=== PATIENT | female | born 1985 | race American Indian/Alaskan Native ===

== ENCOUNTER 2019-09-08 04:24 | Inpatient (IN) | payer SELFPAY ==
[2019-09-08] MEDS ORDERED: ONDANSETRON 4 MG/2 ML INJ ONE ×2 (04:48→21:33)
[2019-09-08] MEDS ORDERED: SODIUM CHLORIDE 0.9% 1000 ML 1,000 ML IV ONE ×2 (04:52→06:25)
[2019-09-08 05:43] LABS: BUN/Creatinine Ratio 10; Blood Urea Nitrogen 9 mg/dL (7-17); Calcium 9.1 mg/dL (8.4-10.2); Hemolysis Index 0
[2019-09-08] MEDS ORDERED: KETOROLAC 30 MG/1 ML INJ IV ONE (05:48)
[2019-09-08 06:21] LABS: Basophils # (Auto) 0.1 K/mm3 (0.0-0.1); Monocytes # (Auto) 0.7 K/mm3 (0.0-0.8)
--- NOTE | 2019-09-08 06:24 | Emergency Department Report ---
ED General Adult HPI - General Chief complaint: Dyspnea/Respdistress Stated complaint: SHORT OF BREATH, VISION LOSS Time Seen by Provider: 09/08/19 06:21 Source: patient Mode of arrival: Ambulatory Limitations: No Limitations - History of Present Illness Initial comments: 34-year-old female with no known prior medical history not taking any current medications. She complained of shortness of breath, vomiting, weakness, chills which began yesterday. He stated that she had pain in her left lower flank for the last few days. She arrives a few hours prior to my arrival and had screening exams ordered by my predecessor. On my encounter. She is noted to be tachypnea And tachycardic but her blood pressure is amply maintained. She was found to have right lower quadrant abdominal tenderness on my exam. Additional medical screening was ordered. He was given fluids and empiric antibiotics. -: Gradual Location: left Radiation: other (flank) Quality: aching Consistency: intermittent Improves with: none Worsens with: none Associated Symptoms: denies other symptoms (except as above) - Related Data Allergies Allergy/AdvReac Type Severity Reaction Status Date / Time No Known Allergies Allergy Verified 09/08/19 04:27 ED Review of Systems ROS: Stated complaint: SHORT OF BREATH, VISION LOSS Other details as noted in HPI Constitutional: chills. denies: fever Eyes: denies: eye pain, eye discharge, vision change ENT: denies: ear pain, throat pain Respiratory: shortness of breath. denies: cough, wheezing Cardiovascular: denies: chest pain, palpitations Endocrine: no symptoms reported Gastrointestinal: denies: abdominal pain, nausea, diarrhea Genitourinary: denies: urgency, dysuria, discharge Musculoskeletal: denies: back pain, joint swelling, arthralgia Skin: denies: rash, lesions Neurological: denies: headache, weakness, paresthesias Psychiatric: denies: anxiety, depression Hematological/Lymphatic: denies: easy bleeding, easy bruising ED Past Medical Hx - Past Medical History Previous Medical History?: No - Surgical History Past Surgical History?: No - Social History Smoking Status: Never Smoker Substance Use Type: None ED Physical Exam - General Limitations: No Limitations General appearance: alert, other (tachypnea and somewhat pale) - Head Head exam: Present: atraumatic, normocephalic - Eye Eye exam: Present: normal appearance, PERRL, EOMI. Absent: scleral icterus - ENT ENT exam: Present: mucous membranes moist - Neck Neck exam: Present: normal inspection. Absent: tenderness, meningismus - Respiratory Respiratory exam: Present: normal lung sounds bilaterally, other (increased work of breathing). Absent: respiratory distress - Cardiovascular Cardiovascular Exam: Present: regular rate, normal rhythm. Absent: systolic murmur, diastolic murmur, rubs, gallop - GI/Abdominal GI/Abdominal exam: Present: soft, tenderness (right lower quadrant tenderness without rebound), normal bowel sounds. Absent: distended, rebound, rigid - Extremities Exam Extremities exam: Present: normal inspection. Absent: calf tenderness - Back Exam Back exam: Present: normal inspection. Absent: CVA tenderness (R), CVA tenderness (L), muscle spasm, paraspinal tenderness, vertebral tenderness - Neurological Exam Neurological exam: Present: alert, oriented X3, CN II-XII intact. Absent: motor sensory deficit - Psychiatric Psychiatric exam: Present: normal affect, normal mood - Skin Skin exam: Present: warm, dry, intact, normal color. Absent: rash ED Course Vital Signs 09/08/19 09/08/19 09/08/19 04:29 04:55 07:39 Temperature 97.9 F 98.2 F 97.9 F Pulse Rate 140 H 132 H 122 H Respiratory 18 33 H 22 Rate Blood Pressure 121/51 Blood Pressure 110/37 105/62 [Left] O2 Sat by Pulse 100 97 96 Oximetry 09/08/19 09/08/19 09/08/19 07:58 08:35 08:58 Temperature 97.8 F Pulse Rate 130 H Respiratory 22 31 H Rate Blood Pressure Blood Pressure [Left] O2 Sat by Pulse 98 100 Oximetry 09/08/19 09/08/19 09/08/19 09:00 09:01 10:00 Temperature Pulse Rate 135 H 127 H 137 H Respiratory 22 28 H 27 H Rate Blood Pressure 106/54 121/65 Blood Pressure 105/64 [Left] O2 Sat by Pulse 98 100 100 Oximetry 09/08/19 09/08/19 09/08/19 10:30 11:00 11:30 Temperature Pulse Rate 135 H 133 H 137 H Respiratory 31 H 22 26 H Rate Blood Pressure 111/53 123/71 117/55 Blood Pressure [Left] O2 Sat by Pulse 100 100 100 Oximetry 09/08/19 09/08/19 09/08/19 11:34 11:35 11:47 Temperature 97.9 F 97.4 F L 97.3 F L Pulse Rate 140 H 137 H 137 H Respiratory 32 H 28 H 32 H Rate Blood Pressure 117/55 117/55 104/68 Blood Pressure [Left] O2 Sat by Pulse 100 100 100 Oximetry 09/08/19 09/08/19 09/08/19 11:49 12:01 12:19 Temperature 97.4 F L 98 F Pulse Rate 136 H 137 H 133 H Respiratory 26 H 39 H 22 Rate Blood Pressure 119/65 126/68 122/59 Blood Pressure [Left] O2 Sat by Pulse 100 100 98 Oximetry 09/08/19 09/08/19 12:31 13:24 Temperature 97.4 F L Pulse Rate 135 H 138 H Respiratory 29 H 28 H Rate Blood Pressure 156/82 139/74 Blood Pressure [Left] O2 Sat by Pulse 100 98 Oximetry - Reevaluation(s) Reevaluation #1: CT the abdomen and pelvis showed evidence of 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 In addition there was pelvic vein thrombosis extending up into the IVC. I discussed this with the radiologist. He recommended that we proceed with CT pulmonary angiography despite the extra contrast load. I agree. CT angios was ordered. The patient was heparinized. Transfusion was ordered. Fluid bolus was given. She had been previously given empiric antibiotic. She was found to have substantial lactic acidosis. I held off on giving her any opioids for pain as they are generally free load reducing. Her blood pressure is low. She has high pretest probability for significant pulmonary embolism. We will defer that until she is more stable. Patient is admitted to the ICU hospitalist service for further care and management. 09/08/19 09:49 ED Medical Decision Making - Lab Data Result diagrams: 09/08/19 08:00 09/08/19 Unknown Laboratory Results - last 24 hr 09/08/19 09/08/19 09/08/19 05:21 05:58 06:41 WBC 16.5 H RBC 5.76 H Hgb 7.3 L Hct 30.0 L MCV 52 L MCH 13 L MCHC 24 L RDW 24.7 H Plt Count 143 Lymph % (Auto) 8.1 L [place] % (Auto) 4.0 Eos % (Auto) 0.0 Baso % (Auto) 0.0 Lymph # 1.3 [place] # 0.7 Eos # 0.0 Baso # 0.1 Seg Neutrophils % 87.4 H Seg Neutrophils # 14.4 H PT 16.1 H INR 1.27 H APTT 25.1 D-Dimer 8215.21 H Sodium Potassium Chloride Carbon Dioxide Anion Gap BUN Creatinine Estimated GFR BUN/Creatinine Ratio Glucose Lactic Acid Calcium Magnesium Total Bilirubin Direct Bilirubin Indirect Bilirubin AST ALT Alkaline Phosphatase Troponin T NT-Pro-B Natriuret Pep Total Protein Albumin Albumin/Globulin Ratio Triglycerides Cholesterol LDL Cholesterol Direct HDL Cholesterol Cholesterol/HDL Ratio Lipase HCG, Qual Salicylates 09/08/19 09/08/19 09/08/19 06:41 06:41 06:41 WBC RBC Hgb Hct MCV MCH MCHC RDW Plt Count Lymph % (Auto) [place] % (Auto) Eos % (Auto) Baso % (Auto) Lymph # [place] # Eos # Baso # Seg Neutrophils % Seg Neutrophils # PT INR APTT D-Dimer Sodium Potassium Chloride Carbon Dioxide Anion Gap BUN Creatinine Estimated GFR BUN/Creatinine Ratio Glucose Lactic Acid 6.30 H* Calcium Magnesium 1.80 Total Bilirubin 1.40 H Direct Bilirubin 0.5 H Indirect Bilirubin 0.9 AST 43 H ALT 26 Alkaline Phosphatase 115 Troponin T NT-Pro-B Natriuret Pep 1552 H Total Protein 7.8 Albumin 3.3 L Albumin/Globulin Ratio 0.7 Triglycerides Cholesterol LDL Cholesterol Direct HDL Cholesterol Cholesterol/HDL Ratio Lipase 22 HCG, Qual Salicylates < 0.3 L 09/08/19 09/08/19 09/08/19 06:41 08:00 08:00 WBC RBC Hgb 7.4 L Hct 28.4 L MCV MCH MCHC RDW Plt Count 137 L Lymph % (Auto) [place] % (Auto) Eos % (Auto) Baso % (Auto) Lymph # [place] # Eos # Baso # Seg Neutrophils % Seg Neutrophils # PT 16.0 H INR 1.26 H APTT 25.3 D-Dimer Sodium Potassium Chloride Carbon Dioxide Anion Gap BUN Creatinine Estimated GFR BUN/Creatinine Ratio Glucose Lactic Acid Calcium Magnesium Total Bilirubin Direct Bilirubin Indirect Bilirubin AST ALT Alkaline Phosphatase Troponin T NT-Pro-B Natriuret Pep Total Protein Albumin Albumin/Globulin Ratio Triglycerides Cholesterol LDL Cholesterol Direct HDL Cholesterol Cholesterol/HDL Ratio Lipase HCG, Qual Negative Salicylates 09/08/19 09/08/1920 08:14 Unknown Unknown WBC RBC Hgb Hct MCV MCH MCHC RDW Plt Count Lymph % (Auto) [place] % (Auto) Eos % (Auto) Baso % (Auto) Lymph # [place] # Eos # Baso # Seg Neutrophils % Seg Neutrophils # PT INR APTT D-Dimer Sodium 137 Potassium 3.9 Chloride 102.6 Carbon Dioxide 17 L Anion Gap 21 BUN 9 Creatinine 0.9 Estimated GFR > 60 BUN/Creatinine Ratio 10 Glucose 217 H Lactic Acid 7.70 H* Calcium 9.1 Magnesium Total Bilirubin Direct Bilirubin Indirect Bilirubin AST ALT Alkaline Phosphatase Troponin T 0.047 H NT-Pro-B Natriuret Pep Total Protein Albumin Albumin/Globulin Ratio Triglycerides 42 Cholesterol 100 LDL Cholesterol Direct 53 HDL Cholesterol 47 Cholesterol/HDL Ratio 2.12 Lipase HCG, Qual Negative Salicylates - EKG Data EKG shows normal: sinus rhythm Rate: tachycardia - EKG Data Interpretation: other (there is a significant S1 in lead 1, there is a Q in lead 3. I don't see an inverted T-wave there. As a QR pattern in V1. This looks like a right for a tracheal strain pattern to me. There is no evidence for acute ischemia.) Laboratory Results - last 24 hr 09/08/19 09/08/19 09/08/19 05:58 Unknown Unknown [place] % (Auto) 4.0 Eos % (Auto) 0.0 [place] # 0.7 Eos # 0.0 Baso # 0.1 Seg Neutrophils % 87.4 H Seg Neutrophils # 14.4 H Sodium 137 Potassium 3.9 Chloride 102.6 Carbon Dioxide 17 L Anion Gap 21 BUN 9 Creatinine 0.9 Estimated GFR > 60 BUN/Creatinine Ratio 10 Glucose 217 H Calcium 9.1 Troponin T 0.047 H HCG, Qual Negative 09/08/19 06:23 - Radiology Data Radiology results: report reviewed Critical Care Time: Yes Critical care time in (mins) excluding proc time.: 120 Critical care attestation.: If time is entered above; I have spent that time in minutes in the direct care of this critically ill patient, excluding procedure time. 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
--- NOTE | 2019-09-08 06:24 | XRay Report ---
CHEST 1 VIEW INDICATION: Chest Pain. COMPARISON: None FINDINGS: Support devices: None. Heart: Within normal limits. Lungs/Pleura: No acute air space or interstitial disease. Additional findings: None. IMPRESSION: 1. No acute findings. Signer Name: Lucien Hoffman MD Signed: 09/08/2019 6:19 AM Workstation Name: [id number]
[2019-09-08 06:27] LABS: Chol/HDL Ratio 2.12 %; HDL Cholesterol 47 mg/dL (40-59); LDL Cholesterol,Direct 53 mg/dL (50-130)
[2019-09-08 06:30] LABS: Hemoglobin 7.3 gm/dl (10.1-14.3); Mean Corpuscular Volume 52 fl (79-97); Red Blood Count 5.76 M/mm3 (3.65-5.03)
[2019-09-08 06:31] LABS: Lymphocytes # (Auto) 1.3 K/mm3 (1.2-5.4); Lymphocytes % (Auto) 8.1 % (13.4-35.0); Mean Corpuscular HGB Conc 24 % (30-34); Platelet Count 143 K/mm3 (140-440); Red Cell Distribution Width 24.7 % (13.2-15.2)
[2019-09-08] MEDS ORDERED: PIPERACIL/TAZOBACTA 4.5/NS 100 4.5 GM/100 ML VIAL IV ONE (06:43)
[2019-09-08 07:23] LABS: INR 1.27 (0.87-1.13); Partial Thromboplastin Time 25.1 Sec. (24.2-36.6)
[2019-09-08 07:34] LABS: Albumin 3.3 g/dL (3.9-5); Bilirubin,Direct 0.5 mg/dL (0-0.2)
[2019-09-08] MEDS ORDERED: SODIUM CHLORIDE 0.9% 500 ML 500 ML IV ONE (07:38)
[2019-09-08] MEDS ORDERED: HEPARIN 10,000 UNITS/10 ML VIAL IV ONE (07:40)
--- NOTE | 2019-09-08 07:41 | Cat Scan Report ---
CT ABDOMEN AND PELVIS WITH CONTRAST HISTORY: Lower abd pain RLQ tender. COMPARISON: None. TECHNIQUE: CT images of the abdomen and pelvis were obtained following administration of intravenous contrast. All CT scans at this location are performed using CT dose reduction for ALARA by means of automated exposure control. CONTRAST: 100 ml of intravenous contrast administered. FINDINGS: Lungs/bones: This is a nonarteriogram exam; however, there is suggestion of bibasilar subsegmental t hromboembolic disease. Heart size is normal and the lungs are clear. No acute osseous abnormality matt ntified. Abdomen/pelvis: There is periportal edema, with mild enlargement of the liver. There is also trace pe richolecystic fluid. The gallbladder otherwise appears unremarkable. The spleen is borderline enlarge d as well. Pancreas is unremarkable. The adrenal glands, kidneys, and proximal GI tract appear unrema rkable. There is pathologic retroperitoneal adenopathy with a mass interposed between the aorta and the left kidney measuring 3.3 cm on image #94 of series #2. The IVC is incompletely opacified; however, there does appear to be some intramural thrombus given gross enlargement extending into the pelvis. There are large masses within the pelvis which appear to arise from the uterus. There is also a mass in the right lower quadrant which is not clearly connected to the uterine masses and measures 3.5 cm on image 124 of series #2. No pathologic inguinal adenopathy. Urinary bladder is mostly collapsed and compressed by the lobulated masses. There is a small amount o f retained contrast in the colon with no acute inflammatory change. The appendix is normal. IMPRESSION: 1. Large lobulated uterine masses with additional masses in the right lower quadrant and in the retro peritoneum, as well as probable thrombus formation in the IVC and bibasilar PTE's. Uterine or cervica l carcinoma would be primary considerations. Recommend follow-up CTA chest for further evaluation. CRITICAL RESULT: Time of Discovery (BOOKMOBILE LIBRARIAN/CDT): 06:30 am Time of Communication (BOOKMOBILE LIBRARIAN/CDT): 06:33 am Licensed Practitioner Receiving Report: Dr. Edwards Read Back Performed: Yes Signer Name: Lucien Hoffman MD Signed: 09/08/2019 7:37 AM Workstation Name: [email or web address]
[2019-09-08] MEDS ORDERED: HEPARIN/ 0.45% NACL DRIP 25,000 UNIT/500 ML BAG IV SCH (08:00)
[2019-09-08 08:12] LABS: Hematocrit 28.4 % (30.3-42.9); Hemoglobin 7.4 gm/dl (10.1-14.3)
[2019-09-08 08:20] LABS: INR 1.26 (0.87-1.13)
[2019-09-08 08:21] LABS: Partial Thromboplastin Time 25.3 Sec. (24.2-36.6)
--- NOTE | 2019-09-08 10:29 | Cat Scan Report ---
CTA CHEST WITH IV CONTRAST INDICATION / CLINICAL INFORMATION: pelvis thrombosis, CA, tachy. TECHNIQUE: Axial CT images were obtained through the chest after injection of 100 mL Omnipaque 350 IV contrast. 3 plane MIP and/or 3D reconstructions were produced. All CT scans at this location are performed usin g CT dose reduction for YOLY by means of automated exposure control. COMPARISON: CT of the abdomen and pelvis from earlier the same day FINDINGS: PULMONARY ARTERIES: Extensive burden of acute PTE in both lungs, extending from both right and left m ain pulmonary arteries into the lobar arteries of both lungs as well as multiple segmental and subseg mental arteries. THORACIC AORTA: No significant abnormality. HEART: CT evidence of right heart strain is present. RV/LV ratio is greater than 1. Leftward bowing o f the interventricular septum. Right atrium is dilated. Overall, heart size is within normal limits. No pericardial effusion. CORONARY ARTERIES: No significant calcification. PLEURA: No pleural effusion. No pneumothorax. LYMPH NODES: No adenopathy. LUNGS: No acute air space or interstitial disease. ADDITIONAL FINDINGS: None. UPPER ABDOMEN: Please refer to the previous CT scan. SKELETAL STRUCTURES: No significant osseous abnormality. IMPRESSION: 1. Extensive bilateral pulmonary thromboemboli are confirmed. Clot is seen in the right and left padma n pulmonary arteries and branching into all of the lobar and multiple segmental and subsegmental bella reena of both lungs. 2. RV/LV ratio is greater than 1, and there is leftward bowing of the interventricular septum, sugge stive of acute right heart strain. Right atrium and right ventricle both are dilated. These findings were discussed with Dr. Edwards by telephone at 9:25 AM. Signer Name: Vinay Dewitt MD Signed: 09/08/2019 10:24 AM Workstation Name: [id number]
[2019-09-08] MEDS ORDERED: SODIUM CHLORIDE 0.9% 1000 ML 1,000 ML ONE ×2 (11:25→20:09)
[2019-09-08] MEDS ORDERED: MORPHINE 2 MG/1 ML INJ IV PRN (12:15)
[2019-09-08] MEDS ORDERED: HYDROcodone/ACETAMINOPHEN 10-325MG TAB PO PRN (12:20)
[2019-09-08] MEDS ORDERED: POLYETHYLENE GLYCOL 3350 17 GM POWDER PO PRN (12:20)
[2019-09-08] MEDS ORDERED: ACETAMINOPHEN 325 MG TAB PO PRN (12:20)
[2019-09-08] MEDS ORDERED: ONDANSETRON 4 MG/2 ML INJ IV PRN (12:20)
[2019-09-08] MEDS ORDERED: MORPHINE 2 MG/1 ML INJ ONE ×2 (12:28→17:41)
[2019-09-08] MEDS ORDERED: SODIUM CHLORIDE 0.9% 1000 ML 1,000 ML IV SCH (12:30)
[2019-09-08] MEDS ORDERED: DEXTROSE 50% IN WATER (25GM) 50 ML SYRINGE IV PRN (12:32)
--- NOTE | 2019-09-08 12:50 | History and Physical Report ---
History of Present Illness Date of examination: 09/08/19 Date of admission: 09/08/19 09:37 Chief complaint: SOB History of present illness: Patient is a 34 yo woman without chronic medical conditions who presents with sudden onset of acute severe constant SOB without aggravating or relieving factors associated with n/v, chills, fatigue, generalized weakness that begun 1 day prior to admission. She woke up today with dizziness, lightheadedness, transient blurry vision. She also gives a history of right lower quadrant/flank pains for couple of days associated with polyuria, mild dysuria in which she thought she had an UTI but did not seek medical attention. She was found to be anemic. She went for CT abd/pelvis with contrast that saw a thrombus in the IVC along with large lobulated 3.5 mass appearing to arise from the uterus. PMH: as hpi PSH: denies SH: denies tob/etoh/illicit drug abuse FH: mother of lung cancer, HTN and DM ROS: Constitutional: denies: fever +malaise, +gen weaknes ENT: denies: throat or neck pain Respiratory: denies: cough, +shortness of breath Cardiovascular: denies: chest pain Endocrine: +weight loss unquanified, noticed by sister Gastrointestinal: +abdominal pain, nausea Genitourinary: + dysuria Rectal: denies no incontinence, no bleeding, no itching, no discharge Musculoskeletal: denies swelling, myaglia, +muscle weakness Skin: denies: rash Neurological: denies: severe headache +blurry vision Hematological/Lymphatic: denies: easy bleeding or easy bruising +pica Allergic/Immunologic: no urticaria, no allergic rhinitis, no anaphylaxis Psych: denies sadness or hopelessness, SI/HI Medications and Allergies Allergies Allergy/AdvReac Type Severity Reaction Status Date / Time No Known Allergies Allergy Verified 09/08/19 04:27 Active Meds: Active Medications Acetaminophen (Tylenol) 650 mg PO Q6H PRN PRN Reason: Non Cardiac Pain or Temp>100.5 Acetaminophen/Hydrocodone Bitart (Solomon 10/325) 1 each PO Q4H PRN PRN Reason: Pain, Moderate (4-6) Dextrose (D50w (25gm) Syringe) 50 ml IV Q30MIN PRN; Protocol PRN Reason: Hypoglycemia Heparin Sodium/Sodium Chloride (Heparin/ 0.45% Nacl-25,000 Unit/500 Ml) 25,000 unit in 500 mls @ 30 mls/hr IV TITR MOE; Protocol Last Admin: 09/08/19 08:27 Dose: 1,500 units/hr, 30 mls/hr Documented by: Sodium Chloride (Nacl 0.9% 1000 Ml) 1,000 mls @ 100 mls/hr IV DIRECT MOE Insulin Human Lispro (Humalog) 0 unit SUB-Q ACHS MOE; Protocol Morphine Sulfate (Morphine) 2 mg IV Q4H PRN PRN Reason: Pain , Severe (7-10) Last Admin: 09/08/19 12:36 Dose: 2 mg Documented by: Ondansetron HCl (Zofran) 4 mg IV Q4H PRN PRN Reason: Nausea And Vomiting Pantoprazole Sodium (Protonix) 40 mg IV QDAY MOE Polyethylene Glycol (Miralax 3350) 17 gm PO QDAY PRN PRN Reason: Constipation Exam - Physical Exam Narrative exam: Gen: well-kempt, obese woman in NAD, Awake, Alert, Orientated x 3 HEENT: NCAT, EOMI, PERRL, OP Clear Neck: supple, no adenopathy, no thyromegaly, no JVD CVS/Heart: Regular tachycardia normal S1S2, pulses present bilaterally Chest/Lungs: tachypneic, diminished bs bilateral, CTA B, Symmetrical chest expansion, good air entry bilaterally GI/Abdomen: soft, nondistended, diffuse tenderness, good bowel sounds, no guarding or rebound /Bladder: no suprapubic tenderness, no CVA or paraspinal tenderness Extermity/Skin: no c/c/e, no obvious rash, cap refill 3-4 seconds MSK: FROM x 4 Neuro: CN 2-12 grossly intact, no new focal deficits Psych: calm - Constitutional Vitals: Temp Pulse Resp BP Pulse Ox 98 F 135 H 29 H 156/82 100 09/08/19 12:19 09/08/19 12:31 09/08/19 12:31 09/08/19 12:31 09/08/19 12:31 Results - Labs CBC & Chem 7: 09/08/19 08:00 09/08/19 Unknown Labs: Laboratory Last Values WBC 16.5 K/mm3 (4.5-11.0) H 09/08/19 05:58 RBC 5.76 M/mm3 (3.65-5.03) H 09/08/19 05:58 Hgb 7.4 gm/dl (10.1-14.3) L 09/08/19 08:00 Hct 28.4 % (30.3-42.9) L 09/08/19 08:00 MCV 52 fl (79-97) L 09/08/19 05:58 MCH 13 pg (28-32) L 09/08/19 05:58 MCHC 24 % (30-34) L 09/08/19 05:58 RDW 24.7 % (13.2-15.2) H 09/08/19 05:58 Plt Count 137 K/mm3 (140-440) L 09/08/19 08:00 Lymph % (Auto) 8.1 % (13.4-35.0) L 09/08/19 05:58 [place] % (Auto) 4.0 % (0.0-7.3) 09/08/19 05:58 Eos % (Auto) 0.0 % (0.0-4.3) 09/08/19 05:58 Baso % (Auto) 0.0 % (0.0-1.8) 09/08/19 05:58 Lymph # 1.3 K/mm3 (1.2-5.4) 09/08/19 05:58 [place] # 0.7 K/mm3 (0.0-0.8) 09/08/19 05:58 Eos # 0.0 K/mm3 (0.0-0.4) 09/08/19 05:58 Baso # 0.1 K/mm3 (0.0-0.1) 09/08/19 05:58 Seg Neutrophils % 87.4 % (40.0-70.0) H 09/08/19 05:58 Seg Neutrophils # 14.4 K/mm3 (1.8-7.7) H 09/08/19 05:58 PT 16.0 Sec. (12.2-14.9) H 09/08/19 08:00 INR 1.26 (0.87-1.13) H 09/08/19 08:00 APTT 25.3 Sec. (24.2-36.6) 09/08/19 08:00 D-Dimer 8215.21 ng/mlDDU (0-234) H 09/08/19 05:21 Sodium 137 mmol/L (137-145) 09/08/19 Unknown Potassium 3.9 mmol/L (3.6-5.0) 09/08/19 Unknown Chloride 102.6 mmol/L (98-107) 09/08/19 Unknown Carbon Dioxide 17 mmol/L (22-30) L 09/08/19 Unknown Anion Gap 21 mmol/L 09/08/19 Unknown BUN 9 mg/dL (7-17) 09/08/19 Unknown Creatinine 0.9 mg/dL (0.7-1.2) 09/08/19 Unknown Estimated GFR > 60 ml/min 09/08/19 Unknown BUN/Creatinine Ratio 10 % 09/08/19 Unknown Glucose 217 mg/dL (65-100) H 09/08/19 Unknown Lactic Acid 7.70 mmol/L (0.7-2.0) H* 09/08/19 08:14 Calcium 9.1 mg/dL (8.4-10.2) 09/08/19 Unknown Magnesium 1.80 mg/dL (1.7-2.3) 09/08/19 06:41 Total Bilirubin 1.40 mg/dL (0.1-1.2) H 09/08/19 06:41 Direct Bilirubin 0.5 mg/dL (0-0.2) H 09/08/19 06:41 Indirect Bilirubin 0.9 mg/dL 09/08/19 06:41 AST 43 units/L (5-40) H 09/08/19 06:41 ALT 26 units/L (7-56) 09/08/19 06:41 Alkaline Phosphatase 115 units/L (35-129) 09/08/19 06:41 Troponin T 0.047 ng/mL (0.00-0.029) H 09/08/19 Unknown NT-Pro-B Natriuret Pep 1552 pg/mL (0-450) H 09/08/19 06:41 Total Protein 7.8 g/dL (6.3-8.2) 09/08/19 06:41 Albumin 3.3 g/dL (3.9-5) L 09/08/19 06:41 Albumin/Globulin Ratio 0.7 % 09/08/19 06:41 Triglycerides 42 mg/dL (2-149) 09/08/19 Unknown Cholesterol 100 mg/dL (50-199) 09/08/19 Unknown LDL Cholesterol Direct 53 mg/dL (50-130) 09/08/19 Unknown HDL Cholesterol 47 mg/dL (40-59) 09/08/19 Unknown Cholesterol/HDL Ratio 2.12 % 09/08/19 Unknown Lipase 22 units/L (13-60) 09/08/19 06:41 HCG, Qual Negative (Negative) 09/08/19 Unknown Salicylates < 0.3 mg/dL (2.8-20.0) L 09/08/19 06:41 Blood Type AB POSITIVE 09/08/19 08:19 Antibody Screen Negative 09/08/19 08:19 Crossmatch See Detail 09/08/19 08:19 Assessment and Plan Assessment and plan: Patient is a 34 yo woman without chronic medical conditions who presents with sudden onset of acute severe constant SOB without aggravating or relieving factors associated with n/v, chills, fatigue, generalized weakness that begun 1 day prior to admission. She woke up today with dizziness, lightheadedness, transient blurry vision. She also gives a history of right lower quadrant/flank pains for couple of days associated with polyuria, mild dysuria in which she thought she had an UTI but did not seek medical attention. She was found to be anemic. She went for CT abd/pelvis with contrast that saw a thrombus in the IVC along with large lobulated 3.5 mass appearing to arise from the uterus. Patient reports no pap smear or woman exam in more than 2 years. * D-Dimer 8215.21, HR 136, RR 22, wbc 16.5, hgb 7.3 (mcv 52), hct 30, plt 143, co2 17, BG 217 * CT abd/pelvis with IV contrast IMPRESSION: 1. Large lobulated uterine masses with additional masses in the right lower quadrant and in the retroperitoneum, as well as probable thrombus formation in the IVC and bibasilar PTE's. Uterine or cervical carcinoma would be primary considerations. Recommend follow-up CTA chest for further evaluation. * CTA chest IMPRESSION: 1. Extensive bilateral pulmonary thromboemboli are confirmed. Clot is seen in the right and left main pulmonary arteries and branching into all of the lobar and multiple segmental and subsegmental arteries of both lungs. 2. RV/LV ratio is greater than 1, and there is leftward bowing of the interventricular septum, suggestive of acute right heart strain. Right atrium and right ventricle both are dilated. * pCXR IMPRESSION: 1. No acute findings. Symptomatic (sob, transient blurry vision, fatique) Acute blood loss anemia, most likely menorrhagia: treat with prbc transfusion, get FOBT, iron studies and possibly treat with iron, laxative prn Pelvic mass suspected Cervical Cancer: Consult loft patternmaker, get transvaginal/pelvic ultrasound Acute Severe Extensive Bilateral Pulmonary Embolism: Vascular consulted, treat with IV heparin drip, complex medical decision due to anemia, mild thrombocytopenia Hyperglycemia: check a1c, accucheck ssi Elevated troponin, type 2 [place]: echo, serial ekg/troponin, consult Cardiology Elevated pro-BNP; check ECHO SIRS with organ dysfuction, poa: get blood culture, ua pending Hyperbilirubinemia, possibly related to anemia,bleeding, pelvic mass Isolated elevated AST: check hepatitis panel Thrombocytopenia, most likely reactive: closely monitor while on IV heparin drip DVT ppx scd only due to anemia CCT 34 minutes
--- NOTE | 2019-09-08 13:39 | Consultation ---
History of Present Illness Consult date: 09/08/19 Requesting physician: INÉS SEAMAN Reason for consult: pelvic mass History of present illness: Pt is a 34yo BF G0 LMP 08/24/18 without chronic medical conditions who presents with sudden onset of acute severe constant SOB without aggravating or relieving factors associated with n/v, chills, fatigue, generalized weakness that begun 1 day prior to admission. She woke up today with dizziness, lightheadedness, transient blurry vision. She also gives a history of right lower quadrant/flank pains for couple of days associated with polyuria, mild dysuria in which she thought she had an UTI but did not seek medical attention. She was found to be anemic. She went for CT abd/pelvis with contrast that saw a thrombus in the IVC along with large lobulated 3.5 mass appearing to arise from the uterus associated with retroperitoneal adenopathy, and a CTA of her chest revealed bilateral pulmonary emboli in the main pulmonary arteries. Past History Past Medical History: no pertinent history Past Surgical History: no surgical history Family/Genetic History: cancer Social history: no significant social history, single Medications and Allergies Allergies Allergy/AdvReac Type Severity Reaction Status Date / Time No Known Allergies Allergy Verified 09/08/19 04:27 Active Meds: Active Medications Acetaminophen (Tylenol) 650 mg PO Q6H PRN PRN Reason: Non Cardiac Pain or Temp>100.5 Acetaminophen/Hydrocodone Bitart ([place] 10/325) 1 each PO Q4H PRN PRN Reason: Pain, Moderate (4-6) Dextrose (D50w (25gm) Syringe) 50 ml IV Q30MIN PRN; Protocol PRN Reason: Hypoglycemia Heparin Sodium/Sodium Chloride (Heparin/ 0.45% Nacl-25,000 Unit/500 Ml) 25,000 unit in 500 mls @ 30 mls/hr IV TITR MOE; Protocol Last Admin: 09/08/19 08:27 Dose: 1,500 units/hr, 30 mls/hr Documented by: Sodium Chloride (Nacl 0.9% 1000 Ml) 1,000 mls @ 100 mls/hr IV DIRECT MOE Insulin Human Lispro (Humalog) 0 unit SUB-Q ACHS MOE; Protocol Morphine Sulfate (Morphine) 2 mg IV Q4H PRN PRN Reason: Pain , Severe (7-10) Last Admin: 09/08/19 12:36 Dose: 2 mg Documented by: Ondansetron HCl (Zofran) 4 mg IV Q4H PRN PRN Reason: Nausea And Vomiting Pantoprazole Sodium (Protonix) 40 mg IV QDAY MOE Polyethylene Glycol (Miralax 3350) 17 gm PO QDAY PRN PRN Reason: Constipation Review of Systems All systems: negative - Vital Signs Vital signs: Vital Signs Temp Pulse Resp BP Pulse Ox 97.9 F 140 H 18 121/51 100 09/08/19 04:29 09/08/19 04:29 09/08/19 04:29 09/08/19 04:29 09/08/19 04:29 Temp Pulse Resp BP Pulse Ox 97.4 F L 138 H 28 H 139/74 98 09/08/19 13:24 09/08/19 13:24 09/08/19 13:24 09/08/19 13:24 09/08/19 13:24 - Physical Exam Breasts: Positive: deferred Cardiovascular: Regular rate Abdomen: Positive: normal appearance, soft, distention Extremities: Positive: edema Results Result Diagrams: 09/08/19 13:49 09/08/19 Unknown Abnormal lab results 09/08/19 09/08/19 09/08/19 Range/Units 05:21 05:58 06:41 WBC 16.5 H (4.5-11.0) K/mm3 RBC 5.76 H (3.65-5.03) M/mm3 Hgb 7.3 L (10.1-14.3) gm/dl Hct 30.0 L (30.3-42.9) % MCV 52 L (79-97) fl MCH 13 L (28-32) pg MCHC 24 L (30-34) % RDW 24.7 H (13.2-15.2) % Plt Count (140-440) K/mm3 Lymph % (Auto) 8.1 L (13.4-35.0) % Seg Neutrophils % 87.4 H (40.0-70.0) % Seg Neutrophils # 14.4 H (1.8-7.7) K/mm3 PT 16.1 H (12.2-14.9) Sec. INR 1.27 H (0.87-1.13) D-Dimer 8215.21 H (0-234) ng/mlDDU Carbon Dioxide (22-30) mmol/L Glucose (65-100) mg/dL Lactic Acid (0.7-2.0) mmol/L Total Bilirubin (0.1-1.2) mg/dL Direct Bilirubin (0-0.2) mg/dL AST (5-40) units/L Troponin T (0.00-0.029) ng/mL NT-Pro-B Natriuret Pep (0-450) pg/mL Albumin (3.9-5) g/dL Salicylates (2.8-20.0) mg/dL Crossmatch 09/08/19 09/08/19 09/08/19 Range/Units 06:41 06:41 06:41 WBC (4.5-11.0) K/mm3 RBC (3.65-5.03) M/mm3 Hgb (10.1-14.3) gm/dl Hct (30.3-42.9) % MCV (79-97) fl MCH (28-32) pg MCHC (30-34) % RDW (13.2-15.2) % Plt Count (140-440) K/mm3 Lymph % (Auto) (13.4-35.0) % Seg Neutrophils % (40.0-70.0) % Seg Neutrophils # (1.8-7.7) K/mm3 PT (12.2-14.9) Sec. INR (0.87-1.13) D-Dimer (0-234) ng/mlDDU Carbon Dioxide (22-30) mmol/L Glucose (65-100) mg/dL Lactic Acid 6.30 H* (0.7-2.0) mmol/L Total Bilirubin 1.40 H (0.1-1.2) mg/dL Direct Bilirubin 0.5 H (0-0.2) mg/dL AST 43 H (5-40) units/L Troponin T (0.00-0.029) ng/mL NT-Pro-B Natriuret Pep 1552 H (0-450) pg/mL Albumin 3.3 L (3.9-5) g/dL Salicylates < 0.3 L (2.8-20.0) mg/dL Crossmatch 09/08/19 09/08/19 09/08/19 Range/Units 08:00 08:00 08:14 WBC (4.5-11.0) K/mm3 RBC (3.65-5.03) M/mm3 Hgb 7.4 L (10.1-14.3) gm/dl Hct 28.4 L (30.3-42.9) % MCV (79-97) fl MCH (28-32) pg MCHC (30-34) % RDW (13.2-15.2) % Plt Count 137 L (140-440) K/mm3 Lymph % (Auto) (13.4-35.0) % Seg Neutrophils % (40.0-70.0) % Seg Neutrophils # (1.8-7.7) K/mm3 PT 16.0 H (12.2-14.9) Sec. INR 1.26 H (0.87-1.13) D-Dimer (0-234) ng/mlDDU Carbon Dioxide (22-30) mmol/L Glucose (65-100) mg/dL Lactic Acid 7.70 H* (0.7-2.0) mmol/L Total Bilirubin (0.1-1.2) mg/dL Direct Bilirubin (0-0.2) mg/dL AST (5-40) units/L Troponin T (0.00-0.029) ng/mL NT-Pro-B Natriuret Pep (0-450) pg/mL Albumin (3.9-5) g/dL Salicylates (2.8-20.0) mg/dL Crossmatch 09/08/19 09/08/19 Range/Units 08:19 Unknown WBC (4.5-11.0) K/mm3 RBC (3.65-5.03) M/mm3 Hgb (10.1-14.3) gm/dl Hct (30.3-42.9) % MCV (79-97) fl MCH (28-32) pg MCHC (30-34) % RDW (13.2-15.2) % Plt Count (140-440) K/mm3 Lymph % (Auto) (13.4-35.0) % Seg Neutrophils % (40.0-70.0) % Seg Neutrophils # (1.8-7.7) K/mm3 PT (12.2-14.9) Sec. INR (0.87-1.13) D-Dimer (0-234) ng/mlDDU Carbon Dioxide 17 L (22-30) mmol/L Glucose 217 H (65-100) mg/dL Lactic Acid (0.7-2.0) mmol/L Total Bilirubin (0.1-1.2) mg/dL Direct Bilirubin (0-0.2) mg/dL AST (5-40) units/L Troponin T 0.047 H (0.00-0.029) ng/mL NT-Pro-B Natriuret Pep (0-450) pg/mL Albumin (3.9-5) g/dL Salicylates (2.8-20.0) mg/dL Crossmatch See Detail All other labs normal. 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 Agree with Heparin therapy as per Hospitalist Will follow up on pelvic u/s (2) Acute deep vein thrombosis (DVT) of inferior vena cava Onset Date: 09/08/19 Current Visit: Yes Status: Acute (3) Acute massive pulmonary embolism Onset Date: 09/08/19 Current Visit: Yes Status: Acute
[2019-09-08 13:55] LABS: Iron 10 ug/dL (37-170); Total Iron Binding Capacity 492 mcg/dL (250-450)
[2019-09-08] MEDS ORDERED: HYDROcodone/ACETAMINOPHEN 10-325MG TAB ONE (15:53)
[2019-09-08 15:58] LABS: Hematocrit 34.1 % (30.3-42.9); Hemoglobin 8.9 gm/dl (10.1-14.3)
--- NOTE | 2019-09-08 17:57 | Consultation ---
History of Present Illness - Reason for Consult Consult date: 09/08/19 Pulmonary Embolus Requesting physician: KEVIN RO - History of Present Illness The patient is a 34 year old female who presented to the emergency department with complaints of chest pain and shortness that began 1 day ago. She states that she is also been experiencing bilateral lower extremity swelling for the past several months but thought that it was due to working 2 jobs and being on her feet for the majority of the day. She relates a history of an unintended 40 pound weight loss in less than 1 year associated with generalized fatigue. She has continued to have her menstrual cycle which she describes as having heavy bleeding. Her work-up included a CTA of her chest as well as her abdomen and pelvis revealed bilateral pulmonary emboli in the main pulmonary arteries as well as a large pelvic mass likely originating from the cervix associated with retroperitoneal adenopathy. Additionally there is thrombus in the inferior vena cava that is extending through the suprarenal IVC towards the right atrium. This time she has no additional complaints. Past History Past Medical History: diabetes (Questionable history) Social history: no significant social history Family history: other (Mother of lung cancer) Medications and Allergies Allergies Allergy/AdvReac Type Severity Reaction Status Date / Time No Known Allergies Allergy Verified 09/08/19 04:27 Active Meds: Active Medications Acetaminophen (Tylenol) 650 mg PO Q6H PRN PRN Reason: Non Cardiac Pain or Temp>100.5 Acetaminophen/Hydrocodone Bitart ([place] 10/325) 1 each PO Q4H PRN PRN Reason: Pain, Moderate (4-6) Last Admin: 09/08/19 16:00 Dose: 1 each Documented by: Dextrose (D50w (25gm) Syringe) 50 ml IV Q30MIN PRN; Protocol PRN Reason: Hypoglycemia Heparin Sodium/Sodium Chloride (Heparin/ 0.45% Nacl-25,000 Unit/500 Ml) 25,000 unit in 500 mls @ 30 mls/hr IV TITR MOE; Protocol Last Titration: 09/08/19 16:20 Dose: 0 units/hr, 0 mls/hr Documented by: Sodium Chloride (Nacl 0.9% 1000 Ml) 1,000 mls @ 100 mls/hr IV DIRECT MOE Insulin Human Lispro (Humalog) 0 unit SUB-Q ACHS MOE; Protocol Morphine Sulfate (Morphine) 2 mg IV Q4H PRN PRN Reason: Pain , Severe (7-10) Last Admin: 09/08/19 12:36 Dose: 2 mg Documented by: Ondansetron HCl (Zofran) 4 mg IV Q4H PRN PRN Reason: Nausea And Vomiting Pantoprazole Sodium (Protonix) 40 mg IV QDAY MOE Polyethylene Glycol (Miralax 3350) 17 gm PO QDAY PRN PRN Reason: Constipation Review of Systems All systems: negative Exam - Constitutional Vitals: Temp Pulse Resp BP Pulse Ox 97.4 F L 138 H 28 H 139/74 98 09/08/19 13:24 09/08/19 13:24 09/08/19 13:24 09/08/19 13:24 09/08/19 13:24 General appearance: Present: no acute distress - EENT Eyes: Present: PERRL ENT: hearing intact - Neck Neck: Present: supple - Respiratory Respiratory effort: other (tachypnea) - Cardiovascular Heart rate: 133 Rhythm: other (tachycardia) - Extremities Extremities: no ischemia Extremity abnormal: edema (bilateral lower extremity 1+ pitting) - Abdominal General gastrointestinal: Present: soft, non-tender, non-distended Results - Labs CBC & Chem 7: 09/08/19 13:49 09/08/19 Unknown Labs: Abnormal lab results 09/08/19 09/08/19 09/08/19 Range/Units 05:21 05:58 06:41 WBC 16.5 H (4.5-11.0) K/mm3 RBC 5.76 H (3.65-5.03) M/mm3 Hgb 7.3 L (10.1-14.3) gm/dl Hct 30.0 L (30.3-42.9) % MCV 52 L (79-97) fl MCH 13 L (28-32) pg MCHC 24 L (30-34) % RDW 24.7 H (13.2-15.2) % Plt Count (140-440) K/mm3 Lymph % (Auto) 8.1 L (13.4-35.0) % Seg Neutrophils % 87.4 H (40.0-70.0) % Seg Neutrophils # 14.4 H (1.8-7.7) K/mm3 PT 16.1 H (12.2-14.9) Sec. INR 1.27 H (0.87-1.13) D-Dimer 8215.21 H (0-234) ng/mlDDU Heparin Anti-Xa Level (0.3-0.7) U.I./ml Carbon Dioxide (22-30) mmol/L Glucose (65-100) mg/dL Hemoglobin A1c (4-6) % Lactic Acid (0.7-2.0) mmol/L Iron (37-170) ug/dL TIBC (250-450) mcg/dL Ferritin (13.0-400.0) ng/mL Total Bilirubin (0.1-1.2) mg/dL Direct Bilirubin (0-0.2) mg/dL AST (5-40) units/L Troponin T (0.00-0.029) ng/mL NT-Pro-B Natriuret Pep (0-450) pg/mL Albumin (3.9-5) g/dL Salicylates (2.8-20.0) mg/dL Crossmatch 09/08/19 09/08/19 09/08/19 Range/Units 06:41 06:41 06:41 WBC (4.5-11.0) K/mm3 RBC (3.65-5.03) M/mm3 Hgb (10.1-14.3) gm/dl Hct (30.3-42.9) % MCV (79-97) fl MCH (28-32) pg MCHC (30-34) % RDW (13.2-15.2) % Plt Count (140-440) K/mm3 Lymph % (Auto) (13.4-35.0) % Seg Neutrophils % (40.0-70.0) % Seg Neutrophils # (1.8-7.7) K/mm3 PT (12.2-14.9) Sec. INR (0.87-1.13) D-Dimer (0-234) ng/mlDDU Heparin Anti-Xa Level (0.3-0.7) U.I./ml Carbon Dioxide (22-30) mmol/L Glucose (65-100) mg/dL Hemoglobin A1c (4-6) % Lactic Acid 6.30 H* (0.7-2.0) mmol/L Iron (37-170) ug/dL TIBC (250-450) mcg/dL Ferritin (13.0-400.0) ng/mL Total Bilirubin 1.40 H (0.1-1.2) mg/dL Direct Bilirubin 0.5 H (0-0.2) mg/dL AST 43 H (5-40) units/L Troponin T (0.00-0.029) ng/mL NT-Pro-B Natriuret Pep 1552 H (0-450) pg/mL Albumin 3.3 L (3.9-5) g/dL Salicylates < 0.3 L (2.8-20.0) mg/dL Crossmatch 09/08/19 09/08/19 09/08/19 Range/Units 08:00 08:00 08:00 WBC (4.5-11.0) K/mm3 RBC (3.65-5.03) M/mm3 Hgb 7.4 L (10.1-14.3) gm/dl Hct 28.4 L (30.3-42.9) % MCV (79-97) fl MCH (28-32) pg MCHC (30-34) % RDW (13.2-15.2) % Plt Count 137 L (140-440) K/mm3 Lymph % (Auto) (13.4-35.0) % Seg Neutrophils % (40.0-70.0) % Seg Neutrophils # (1.8-7.7) K/mm3 PT 16.0 H (12.2-14.9) Sec. INR 1.26 H (0.87-1.13) D-Dimer (0-234) ng/mlDDU Heparin Anti-Xa Level (0.3-0.7) U.I./ml Carbon Dioxide (22-30) mmol/L Glucose (65-100) mg/dL Hemoglobin A1c < 4.0 L (4-6) % Lactic Acid (0.7-2.0) mmol/L Iron (37-170) ug/dL TIBC (250-450) mcg/dL Ferritin (13.0-400.0) ng/mL Total Bilirubin (0.1-1.2) mg/dL Direct Bilirubin (0-0.2) mg/dL AST (5-40) units/L Troponin T (0.00-0.029) ng/mL NT-Pro-B Natriuret Pep (0-450) pg/mL Albumin (3.9-5) g/dL Salicylates (2.8-20.0) mg/dL Crossmatch 09/08/19 09/08/19 09/08/19 Range/Units 08:00 08:00 08:14 WBC (4.5-11.0) K/mm3 RBC (3.65-5.03) M/mm3 Hgb (10.1-14.3) gm/dl Hct (30.3-42.9) % MCV (79-97) fl MCH (28-32) pg MCHC (30-34) % RDW (13.2-15.2) % Plt Count (140-440) K/mm3 Lymph % (Auto) (13.4-35.0) % Seg Neutrophils % (40.0-70.0) % Seg Neutrophils # (1.8-7.7) K/mm3 PT (12.2-14.9) Sec. INR (0.87-1.13) D-Dimer (0-234) ng/mlDDU Heparin Anti-Xa Level (0.3-0.7) U.I./ml Carbon Dioxide (22-30) mmol/L Glucose (65-100) mg/dL Hemoglobin A1c (4-6) % Lactic Acid 7.70 H* (0.7-2.0) mmol/L Iron 10 L (37-170) ug/dL TIBC 492 H (250-450) mcg/dL Ferritin 11.8 L (13.0-400.0) ng/mL Total Bilirubin (0.1-1.2) mg/dL Direct Bilirubin (0-0.2) mg/dL AST (5-40) units/L Troponin T (0.00-0.029) ng/mL NT-Pro-B Natriuret Pep (0-450) pg/mL Albumin (3.9-5) g/dL Salicylates (2.8-20.0) mg/dL Crossmatch 09/08/19 09/08/19 09/08/19 Range/Units 08:19 13:49 13:49 WBC (4.5-11.0) K/mm3 RBC (3.65-5.03) M/mm3 Hgb 8.9 L (10.1-14.3) gm/dl Hct (30.3-42.9) % MCV (79-97) fl MCH (28-32) pg MCHC (30-34) % RDW (13.2-15.2) % Plt Count (140-440) K/mm3 Lymph % (Auto) (13.4-35.0) % Seg Neutrophils % (40.0-70.0) % Seg Neutrophils # (1.8-7.7) K/mm3 PT (12.2-14.9) Sec. INR (0.87-1.13) D-Dimer (0-234) ng/mlDDU Heparin Anti-Xa Level 0.95 H (0.3-0.7) U.I./ml Carbon Dioxide (22-30) mmol/L Glucose (65-100) mg/dL Hemoglobin A1c (4-6) % Lactic Acid (0.7-2.0) mmol/L Iron (37-170) ug/dL TIBC (250-450) mcg/dL Ferritin (13.0-400.0) ng/mL Total Bilirubin (0.1-1.2) mg/dL Direct Bilirubin (0-0.2) mg/dL AST (5-40) units/L Troponin T (0.00-0.029) ng/mL NT-Pro-B Natriuret Pep (0-450) pg/mL Albumin (3.9-5) g/dL Salicylates (2.8-20.0) mg/dL Crossmatch See Detail 09/08/19 Range/Units Unknown WBC (4.5-11.0) K/mm3 RBC (3.65-5.03) M/mm3 Hgb (10.1-14.3) gm/dl Hct (30.3-42.9) % MCV (79-97) fl MCH (28-32) pg MCHC (30-34) % RDW (13.2-15.2) % Plt Count (140-440) K/mm3 Lymph % (Auto) (13.4-35.0) % Seg Neutrophils % (40.0-70.0) % Seg Neutrophils # (1.8-7.7) K/mm3 PT (12.2-14.9) Sec. INR (0.87-1.13) D-Dimer (0-234) ng/mlDDU Heparin Anti-Xa Level (0.3-0.7) U.I./ml Carbon Dioxide 17 L (22-30) mmol/L Glucose 217 H (65-100) mg/dL Hemoglobin A1c (4-6) % Lactic Acid (0.7-2.0) mmol/L Iron (37-170) ug/dL TIBC (250-450) mcg/dL Ferritin (13.0-400.0) ng/mL Total Bilirubin (0.1-1.2) mg/dL Direct Bilirubin (0-0.2) mg/dL AST (5-40) units/L Troponin T 0.047 H (0.00-0.029) ng/mL NT-Pro-B Natriuret Pep (0-450) pg/mL Albumin (3.9-5) g/dL Salicylates (2.8-20.0) mg/dL Crossmatch - Imaging and Cardiology Chest x-ray: image reviewed CT scan - abdomen: image reviewed CT scan - chest: image reviewed Assessment and Plan Patient is a 34-year-old female presented to the emergency department with chest pain and shortness of breath was found to have bilateral pulmonary emboli with a pelvic mass and thrombus extending through her IVC towards her right atrium. She has been started on a heparin drip and is being transfused for an anemia with a hemoglobin of 7.4. The patient presents with a complicated case as she likely has a malignancy with metastasis that is contributing to her acute blood loss anemia. In addition to the acute blood loss anemia she has a thrombus that is extending through her IVC towards her right atrium that contributes to her having contraindications to using thrombolytics to treat her bilateral pulmonary emboli. Additionally devices such as the ClotTriever unable to be used to retrieve the thrombus within the IVC secondary to the proximal extension presenting difficulty passing the device above the thrombus to retrieve it within the basket. The thrombus within the IVC would need to be treated prior to addressing the thrombus in the pulmonary arteries. Additionally the thrombus is too proximal to place an IVC filter to prevent any further pulmonary emboli. For now the best treatment is a heparin drip to prevent propagation of the thrombus, transfusion of packed red blood cells to treat the symptomatic anemia, and venous duplex of bilateral lower extremities to evaluate the extent of the distal thrombus. Ultimately I believe the patient will be best served by being transferred to a tertiary care center where they have an AngioVac and can manage the IVC thrombus with aspiration and potentially treat the pulmonary emboli with either aspirat ion with the AngioVac vs retreatment with a FlowTriever. A tissue diagnosis and definitive management of the pelvic mass would be appropriate after she is stabilized from a respiratory standpoint.
[2019-09-08] MEDS ORDERED: HYDROmorphone 2 MG/1 ML INJ IV PRN (18:14)
[2019-09-08] MEDS: INSULIN LISPRO 100 UNIT/ML SUB-Q SCH ×2 (19:41→23:31)
--- NOTE | 2019-09-08 20:47 | Ultrasound Report ---
ULTRASOUND PELVIS INDICATION / CLINICAL INFORMATION: pelvic mass. TECHNIQUE: Transabdominal and Transvaginal. Duplex Color Doppler used: Yes. COMPARISON: Abdominal CT scan from earlier the same day FINDINGS: UTERUS: Present. - Appearance (if present): Inhomogeneous echogenicity - Size in cm (if present): 15.4 x 8 x 10.3. - Endometrial Complex (if present): Heterogeneous, with masslike appearance.. Thickness in cm (if terrance sured) = 4.1 - Mass lesions: Indeterminate, heterogeneous mass at the left side of the fundus measures 9 x 7.4 x 8 .2 cm. Determined, heterogeneous mass at the fundus on the right measures 4.5 x 5.3 x 2.7 cm. - Additional findings: None. Nonvisualization of the ovaries due to extensive shadowing. FREE FLUID: Small volume of simple fluid in the cul-de-sac. ADDITIONAL FINDINGS: None. IMPRESSION: 1. Markedly abnormal appearance of the endometrium, suggestive of neoplasm, with thickness greater th an 4 cm. Consider further evaluation with pelvic MRI with and without contrast versus endometrial bio psy. 2. Heterogeneous, roughly round masses at the left and right side of the uterine fundus potentially r epresent fibroids, and these are perhaps better demonstrated on the previous contrast enhanced CT sca n. MRI would be helpful for further evaluation of these lesions as well. Signer Name: Vinay Dewitt MD Signed: 09/08/2019 8:43 PM Workstation Name: [id number]
[2019-09-08] MEDS ORDERED: HYDROmorphone 1 MG/1 ML INJ ONE (21:34)
[2019-09-08 22:47] LABS: Hemoglobin 8.6 gm/dl (10.1-14.3)
[2019-09-08 22:48] LABS: Hematocrit 34.3 % (30.3-42.9)
--- NOTE | 2019-09-09 00:10 | Emergency Department Report ---
Blank Doc - Documentation Documentation: I came to the bedside after hearing the patient went into cardiac arrest. Procedure note: Emergent intubation Indication: Cardiac arrest Using a Hali 4 blade, 7-0 ETT was able to visualize the vocal cords. I visualized the 7-0 ET tube passing through the vocal cords. There was positive color change with CO2 detector. Bilateral breath sounds. ETT located 24 cm at the lips.
[2019-09-09] MEDS ORDERED: NORepinephrine/NS 4 MG-250 ML IV SCH (00:15)
[2019-09-09] MEDS ORDERED: NORepinephrine/NS 4 MG-250 ML 4 MG/250 ML BAG IV ONE (00:17)
[2019-09-09] MEDS ORDERED: SODIUM CHLORIDE 0.9% 1000 ML 1,000 ML ONE (00:17)
--- NOTE | 2019-09-09 00:43 | Event Note ---
pt s/p cardiopulmonary arrest with return of spontaneous circulation after resuscitation efforts. Patient was hypotensive after return of spontaneous circulation. Femoral Central catheter line placed to administer pressors. - Central Line Placement Right Femoral Consent Obtained: emergent situation Time Out Performed: Yes Patient Placed on Monitor/Pulse Ox: Yes Prep: mask, gown, gloves Central Line Prep: Chlorhexidine scrub Local Anesthesia Used: Lidocaine 1% Ultrasound Used for Placement: Yes Central Line Lumen Inserted: triple Bloods Obtained for Lab: Yes Central Line Position: good blood return, all ports aspirated, flus, sutured in place with nyl Dressing Applied: Tegaderm Patient Tolerated Procedure: well Complications: none
--- NOTE | 2019-09-09 01:54 | Event Note ---
Responded to a CODE BLUE Initial rhythm PEA ACLS protocol was initiated Several rounds of epi, bicarb was given ROSC was achieved Patient is hypotensive, started on dopamine drip Patient was intubated, central line placed Repeat labs, discussed with family Addendum Attempt made to transfer the patient but the patient coded again ROSC was achieved after several rounds of epi, bicarb However the pulse was lost multiple times Aggressive CPR was continued Patient was also started on Levophed drip Unfortunately each time ROSC was achieved the pulse was quickly [place] 0107. Family at bedside
[2019-09-09 04:13] VITALS: BP 120/65
--- NOTE | 2019-09-09 07:40 | Death Summary ---
Summary - Providers Consults: 09/08/19 10:53 Consult to Physician [CONS] Stat Comment: Consulting Provider: HUMZA SHAFER Physician Instructions: Reason For Exam: B/L PE 09/08/19 12:25 Consult to Physician [CONS] Routine Comment: Consulting Provider: SEGUNDO SINGLETON Physician Instructions: Reason For Exam: pelvic mass, ?Cervical cancer 09/08/19 12:30 Consult to Physician [CONS] Routine Comment: Consulting Provider: LARRY GMOEZ Physician Instructions: Reason For Exam: ICU admission, evaluate for resp failure, PE Attending: INÉS SEAMAN - summary Date of admission: 09/08/19 09:37 Date of : 09/09/19 Significant findings: Patient is a 34 yo woman without chronic medical conditions who presents with sudden onset of acute severe constant SOB without aggravating or relieving factors associated with n/v, chills, fatigue, generalized weakness that begun 1 day prior to admission. She woke up today with dizziness, lightheadedness, transient blurry vision. She also gives a history of right lower quadrant/flank pains for couple of days associated with polyuria, mild dysuria in which she thought she had an UTI but did not seek medical attention. She was found to be anemic. She went for CT abd/pelvis with contrast that saw a thrombus in the IVC along with large lobulated 3.5 mass appearing to arise from the uterus. Patient reports no pap smear or woman exam in more than 2 years. I told her and her sister Idalia at bedside that a pap smear, [facility] visit could have detected this pelvic mass which is most likely cancer and causing this extensive PE. Idalia was upset because she had told her sister to go to the doctor. * D-Dimer 8215.21, HR 136, RR 22, wbc 16.5, hgb 7.3 (mcv 52), hct 30, plt 143, co2 17, BG 217 * CT abd/pelvis with IV contrast IMPRESSION: 1. Large lobulated uterine masses with additional masses in the right lower quadrant and in the retroperitoneum, as well as probable thrombus formation in the IVC and bibasilar PTE's. Uterine or cervical carcinoma would be primary considerations. Recommend follow-up CTA chest for further evaluation. * CTA chest IMPRESSION: 1. Extensive bilateral pulmonary thromboemboli are confi rmed. Clot is seen in the right and left main pulmonary arteries and branching into all of the lobar and multiple segmental and subsegmental arteries of both lungs. 2. RV/LV ratio is greater than 1, and there is leftward bowing of the interventricular septum, suggestive of acute right heart strain. Right atrium and right ventricle both are dilated. * pCXR IMPRESSION: 1. No acute findings. Acute Severe Extensive Bilateral Pulmonary Embolism: Vascular consulted, treat with IV heparin drip, complex medical decision due to anemia, mild thrombocytopenia Symptomatic (sob, transient blurry vision, fatique) Acute blood loss anemia, most likely menorrhagia: treat with prbc transfusion, get FOBT, iron studies and possibly treat with iron, laxative prn Pelvic mass suspected Uterine/Endometrial Cancer as stated by the transvaginal U/S Hyperglycemia: check a1c, accucheck ssi Elevated troponin, type 2 OK: echo, serial ekg/troponin, consult Cardiology Elevated pro-BNP; check ECHO SIRS with organ dysfuction, poa: get blood culture, ua pending Hyperbilirubinemia, possibly related to anemia,bleeding, pelvic mass Isolated elevated AST: check hepatitis panel Thrombocytopenia, most likely reactive: closely monitor while on IV heparin drip DVT ppx scd only due to anemia time of : 09/09/[address] Annika Vaughan Cause of : Pulmonary Embolism, strong likelihood of Uterine Cancer
[2019-09-09] MEDS ORDERED: PANTOPRAZOLE 40 MG INJ IV SCH (10:00)
== END 2019-09-09 07:50 | DRG 208 ==
LOC: ED 04:24 → CC1 09:37
PROVIDERS: ADMIT Internal Medicine; ATTEND Internal Medicine
PROC: 30233N1 Transfusion of Nonautologous Red Blood Cells into Peripheral Vein, Percutaneous Approach (ICD-10-PCS; principal; 2019-09-08)
PROC: 5A1935Z Respiratory Ventilation, Less than 24 Consecutive Hours (ICD-10-PCS; 2019-09-09)
PROC: 0BH17EZ Insertion of Endotracheal Airway into Trachea, Via Natural or Artificial Opening (ICD-10-PCS; 2019-09-09)
PROC: 06HY33Z Insertion of Infusion Device into Lower Vein, Percutaneous Approach (ICD-10-PCS; 2019-09-09)
PROC: B54BZZA Ultrasonography of Right Lower Extremity Veins, Guidance (ICD-10-PCS; 2019-09-09)
PROC: 5A12012 Performance of Cardiac Output, Single, Manual (ICD-10-PCS; 2019-09-09)
DX: I26.99 Other pulmonary embolism without acute cor pulmonale (principal); R65.11 Systemic inflammatory response syndrome (SIRS) of non-infectious origin with acute organ dysfunction; I82.220 Acute embolism and thrombosis of inferior vena cava; I21.A1 Myocardial infarction type 2; D62 Acute posthemorrhagic anemia; D69.6 Thrombocytopenia, unspecified; E80.6 Other disorders of bilirubin metabolism; E11.65 Type 2 diabetes mellitus with hyperglycemia; I46.9 Cardiac arrest, cause unspecified; C76.3 Malignant neoplasm of pelvis; Z80.1 Family history of malignant neoplasm of trachea, bronchus and lung; Z82.49 Family history of ischemic heart disease and other diseases of the circulatory system; Z83.3 Family history of diabetes mellitus
CPT/HCPCS: 36415; 71045; 71275; 74177; 76830; 76856; 80048; 80061; 80076; 80320; 82140; 82728; 82962; 83036; 83550; 83690; 83735; 83880; 84484; 84703; 85014; 85018; 85025; 85049; 85379; 85520; 85610; 85730; 86850; 86900; 86901; 86920; 87040; 93005; 93010; 94002; G0378; G0480; J1170; J1644; J1885; J2270; J2405; J2543; J7030; P9016; Q9967